=== PATIENT | male | born 1940 | race Caucasian/White ===

== ENCOUNTER 2021-01-01 12:36 | Outpatient (CLI) | payer MEDICARE ==
--- NOTE | 2021-01-03 10:04 | Cat Scan Report ---
CTA CHEST WITH CONTRAST INDICATION : Shortness of breath. TECHNIQUE: Axial imaging performed through the chest, with contrast bolus timing set to maximize opa cification of the pulmonary arteries. Sagittal and coronal reformatted images. 3-plane MIP reformatte d images were obtained. All CT scans at this location are performed using CT dose reduction for ALAR A by means of automated exposure control. 100 mL of intravenous contrast administered. COMPARISON: None at this facility FINDINGS: Bolus: Contrast bolus timing is adequate. PTE: There is a rather large filling defect along the anterior wall of the right main pulmonary isabel ry measuring 4.1 x 1.1 in axial plane. This narrows the right main pulmonary artery by 50%. There is also a smaller but similar appearing filling defect in the distal left main pulmonary artery measurin g 3.4 x 1.3 cm. These filling defects appear adherent to the arterial wall and demonstrate an obtuse angle with the vessel wall. No appreciable enhancement on CTA. These findings suggest chronic pulmona ry emboli. No additional pulmonary arterial defects are identified. Mediastinum: Heart size is within normal limits. No pericardial abnormality. The aorta is normal ousmane iber and contains mild scattered plaques. No mediastinal mass or adenopathy. Lungs: Moderate to severe centrilobular emphysematous changes are identified in both lungs. Mild hyp oventilatory changes are noted in the subpleural regions of both lower lobes. No evidence for infiltr ate, mass, pleural effusion or pneumothorax. Bones: Degenerative changes in the spine with nothing acute. Osteopenia. Upper abdomen: Limited imaging of the upper abdomen shows nothing acute. IMPRESSION: Adherent filling defects are identified in both main pulmonary arteries as outlined above. The diffe rential diagnosis includes acute PE, chronic PE, pulmonary artery sarcoma, thromboembolic tumor, and fibrosing mediastinitis. CT findings are most consistent with chronic PEs. Consider short-term follow -up to ensure these are not growing or that the response to therapy. If further evaluation is needed, PET/CT or MR chest with and without contrast may prove useful. These findings were discussed with Dr. Candelaria of interventional radiology who agreed with these find ings. The patient does provide a history of previous pulmonary embolus. We both feel these probably r epresent chronic PEs although the location of these PEs, particularly in the right main pulmonary art dana, are slightly atypical. Signer Name: Hugo Carter Jr, MD Signed: 01/03/2021 9:59 AM Workstation Name: [id number]
== END 2021-01-01 12:37 | disposition home or self-care (01) ==
LOC: CT 12:36
PROVIDERS: ATTEND Radiology Diagnostic Radiology
DX: J43.2 Centrilobular emphysema (principal); Q25.6 Stenosis of pulmonary artery; I26.99 Other pulmonary embolism without acute cor pulmonale
CPT/HCPCS: 36415; 71275; 82565; 84520; Q9967